=== PATIENT | female | born 1960 | race Hispanic/Latino ===

== ENCOUNTER 2017-11-08 13:03 | Emergency (ER) | payer BC ==
[~2017-11-08] VITALS: Ht 162.6 cm; Wt 83.9 kg
[~2017-11-08 13:03] MED LIST: ANTIVERT25 MG PO; BENADRYL25 MG PO; CELEBREX100 MG PO; CIPRO250 MG PO; CYCLOBENZAPRINE5 MG PO; FLECTOR1 EACH; HYDROCODON-ACE1 EA12 PO; IBUPROFEN PO; KEFLEX500 MG; LEVAQUIN500 MG PO; LISINOPRIL10 MG PO; LORTAB ELIXIR473 ML; MELATONIN PO; MELOXICAM15 MG PO; METFORMIN HCL500 MG PO; MOBIC7.5 MG PO; PENICILLIN; PRAVASTATIN SOD10 MG PO; QUALAQUIN324 MG PO; TERBINAFINE HC250 MG PO; Z.0.FLEXERIL10 MG PO; Z.0.LISINOPRIL10 MG PO; Z.0.LUNESTA3 MG PO; ZOFRAN ODT4 MG SL; ZOLPIDEM TARTRA10 MG PO
[2017-11-08] MEDS ORDERED: KETOROLAC TROMETHAMINE 30 MG/ML VIAL IV STA (13:24)
[2017-11-08] MEDS ORDERED: ONDANSETRON HCL INJ 2 MG/ML VIAL IV STA (13:24)
[2017-11-08 13:39] LABS: BILIRUBIN,URINE NEGATIVE (NEGATIVE); KETONES,URINE NEGATIVE (NEGATIVE); LEUKOCYTE ESTERASE ,URINE NEGATIVE (NEGATIVE); NITRITE,URINE NEGATIVE (NEGATIVE); PROTEIN,URINE DIPSTICK NEGATIVE (NEGATIVE); URINE UROBILINOGEN 0.2 mg/dL (0.2 - 1)
[2017-11-08 14:05] LABS: CLARITY,URINE SL CLOUDY (CLEAR); COLOR,URINE YELLOW (YELLOW)
[2017-11-08 14:06] LABS: BASOPHILS % 0.4 % (0.0-1.0); EOSINOPHILS # (AUTO) 0.1 (0.0-0.4); EOSINOPHILS % 1.1 % (0.0-6.0); HEMATOCRIT 43.7 % (34.2-44.1); HEMOGLOBIN 14.5 g/dL (12.0-16.0); LYMPHOCYTES # (AUTO) 1.9 (1.0-3.2); MEAN CORPUSCULAR HEMOGLOBIN 29.4 pg (28-32); MEAN CORPUSCULAR HGB CONC 33.2 g/dL (31-35); MEAN CORPUSCULAR VOLUME 88.6 fL (81-99); MONOCYTES # (AUTO) 0.5 (0.2-0.8); MONOCYTES % 6.4 % (4.4-11.3); NEUTROPHILS # (AUTO) 4.8 (2.1-6.9); NEUTROPHILS % 65.8 % (38.7-80.0); PLATELET COUNT 265 x10e3/uL (140-360); RED BLOOD COUNT 4.93 x10e6/uL (3.6-5.1); RED CELL DISTRIBUTION WIDTH 13.9 % (11.7-14.4)
[2017-11-08 14:15] LABS: EPITHELIAL CELLS,URINE RARE /LPF; RBC,URINE 0-5 /HPF (0-5)
[2017-11-08 14:30] LABS: ALANINE AMINOTRANSFERASE 18 IU/L (0-55); ALBUMIN/GLOBULIN RATIO 1.1 (0.8-2.0); ALKALINE PHOSPHATASE 92 IU/L (40-150); ANION GAP 12.7 mmol/L (8-16); BLOOD UREA NITROGEN 10 mg/dL (7-26); BUN/CREATININE RATIO 14 (6-25); CALCIUM 9.6 mg/dL (8.4-10.2); CARBON DIOXIDE 25 mmol/L (22-29); CHLORIDE 103 mmol/L (98-107); CREATINE KINASE 55 IU/L (29-168); CREATININE, SERUM 0.74 mg/dL (0.57-1.11); EST GLOMERULAR FILTRATION RATE > 60 ML/MIN (60-); GLUCOSE 109 mg/dL (74-118); LIPASE 50 U/L (8-78); POTASSIUM 3.7 mmol/L (3.5-5.1); SODIUM 137 mmol/L (136-145)
[2017-11-08 14:37] LABS: TROPONIN I 0.017 ng/mL (0-0.300)
--- NOTE | 2017-11-08 16:01 | Diagnostic Imaging Report ---
EXAM: CT Abdomen and Pelvis WITH contrast INDICATION: \S\ABD PAIN; with IV contrast only \[id number] \S\1520 \S\Y COMPARISON: CT dated 11/13/2015 TECHNIQUE: Abdomen and pelvis were scanned utilizing a multidetector helical scanner from the lung base to the pubic symphysis after administration of IV contrast. Coronal and sagittal reformations were obtained. Routine protocol was performed. Scan was performed when during portal venous phase. IV CONTRAST: 100 mL of Isovue-370 ORAL CONTRAST: Water COMPLICATIONS: None RADIATION DOSE: Total DLP: 703.64 mGy*cm Estimated effective dose: (DLP x 0.015 x size factor) mSv CTDIvol has been reviewed. It is below the limits set by the Radiation Protocol Committee (RPC). FINDINGS: LINES and TUBES: None. LOWER THORAX: Unremarkable HEPATOBILIARY: No focal hepatic lesions. No biliary ductal dilation. GALLBLADDER: Cholecystectomy. SPLEEN: No splenomegaly. PANCREAS: No focal masses or ductal dilatation. ADRENALS: No adrenal nodules KIDNEYS/URETERS: Kidneys enhance symmetrically. No hydronephrosis. No cystic or solid mass lesions. No stones. GI TRACT: No abnormal distention, wall thickening, or evidence of bowel obstruction. Colonic diverticulosis without evidence of diverticulitis Appendix is normal. Status post gastric band surgery with a small sliding hernia. PELVIC ORGANS/BLADDER: Hysterectomy. Bladder is unremarkable. LYMPH NODES: No lymphadenopathy. VESSELS: Unremarkable. PERITONEUM / RETROPERITONEUM: No free air or fluid. BONES: L5-S1 disc space loss.. SOFT TISSUES: Small fat-containing right inguinal hernia. IMPRESSION: No acute inflammatory process in the abdomen/pelvis. Status post gastric band surgery with a small sliding hernia. Signed by: Dr. Gabe Jerome MD on 11/08/2017 3:57 PM
[2017-11-08 17:10] VITALS: BP 141/90
[2017-11-08] MEDS ORDERED: SODIUM CHLORIDE 0.9% 50ML 50 ML ONE (23:04)
[2017-11-08] MEDS ORDERED: IOPAMIDOL 370 MG/ML 200 ML INFUS..BTL INJ ONE (23:04)
== END 2017-11-08 17:28 | disposition home or self-care (01) ==
LOC: ER 13:03
DX: R10.32 Left lower quadrant pain (principal); R10.12 Left upper quadrant pain
CPT/HCPCS: 36415; 74177; 80053; 81001; 82550; 82553; 83690; 84484; 85025; 99284; J1885; J2405; Q9967

== ENCOUNTER → 2017-12-08 | Outpatient (RCR) | payer BC | LOC: PT 11-18 08:53 | PROVIDERS: ATTEND Registered Nurse | DX: Z96.651 Presence of right artificial knee joint (principal); Z47.1 Aftercare following joint replacement surgery; M25.561 Pain in right knee; M25.661 Stiffness of right knee, not elsewhere classified; R26.2 Difficulty in walking, not elsewhere classified; M62.81 Muscle weakness (generalized) ==

== ENCOUNTER 2017-12-31 07:58 | Outpatient (RCR) | payer BC | END 2018-01-08 | LOC: PT 07:58 | PROVIDERS: ATTEND Registered Nurse | DX: Z96.651 Presence of right artificial knee joint (principal); Z47.1 Aftercare following joint replacement surgery; M25.561 Pain in right knee; M25.661 Stiffness of right knee, not elsewhere classified; M62.81 Muscle weakness (generalized); R26.2 Difficulty in walking, not elsewhere classified ==

== ENCOUNTER → 2018-02-07 | Outpatient (CLI) | payer BC | LOC: MAMMO 09:53 | PROVIDERS: ATTEND Obstetrics & Gynecology | DX: N64.59 Other signs and symptoms in breast (principal) ==

== ENCOUNTER → 2018-03-21 | Outpatient (CLI) | payer BC ==
--- NOTE | 2018-03-21 09:47 | Diagnostic Imaging Report ---
PROCEDURE:ABDOMINAL ULTRASOUND COMPARISON:[facility], CT, CT ABDOMEN/PELVIS W, 11/08/2017, 15:12. INDICATION:Lower Abdominal Pain TECHNIQUE:Alicea scale and color Doppler ultrasound FINDINGS: Imaged portions of the inferior vena cava are normal caliber. The abdominal aorta is mostly obscured; imaged portions are gross unremarkable. Normal pancreas. Pancreatic tail is obscured. Right liver span 15.7 cm. Diffusely increased parenchymal echogenicity; smooth margin. Portal vein diameter 1.2 cm; normal flow direction. Cholecystectomy. Common bile duct diameter 0.4 cm. No intrahepatic duct dilation. Right kidney scan 10.4 cm. Left kidney span 12 cm. Both kidneys are normal. Spleen length 11 cm. CONCLUSION: 1. Echogenic liver consistent with steatosis. 2. Cholecystectomy. Dictated by: Joshua Saenz M.D. on 03/21/2018 at 9:50 Electronically approved by: Joshua Saenz M.D. on 03/21/2018 at 9:51
--- NOTE | 2018-03-21 09:59 | Diagnostic Imaging Report ---
Pelvic ultrasound, 03/21/2018 Clinical history: Pelvic pain Comparison: None Technique: Transabdominal and transvaginal ultrasound. Transvaginal ultrasound necessary for evaluation of the adnexa. Findings: Hysterectomy. Unremarkable vaginal cuff. The ovaries are not conspicuous on transpelvic or transvaginal ultrasound. No free pelvic fluid. Impression: Hysterectomy. Inconspicuous ovaries. No acute abnormality. This report was generated with voice-recognition technology. Errors in financing analyst can occur. Please interpret accordingly and contact a radiologist if there are any questions regarding the report. Signed by: Dr. Joshua Saenz M.D. on 03/21/2018 9:55 AM
--- NOTE | 2018-03-21 09:59 | Diagnostic Imaging Report ---
Pelvic ultrasound, 03/21/2018 Clinical history: Pelvic pain Comparison: None Technique: Transabdominal and transvaginal ultrasound. Transvaginal ultrasound necessary for evaluation of the adnexa. Findings: Hysterectomy. Unremarkable vaginal cuff. The ovaries are not conspicuous on transpelvic or transvaginal ultrasound. No free pelvic fluid. Impression: Hysterectomy. Inconspicuous ovaries. No acute abnormality. This report was generated with voice-recognition technology. Errors in marzipan maker can occur. Please interpret accordingly and contact a radiologist if there are any questions regarding the report. Signed by: Dr. Joshua Saenz M.D. on 03/21/2018 9:55 AM
== END ==
LOC: US 08:36
PROVIDERS: ATTEND Obstetrics & Gynecology
DX: R10.31 Right lower quadrant pain (principal)
CPT/HCPCS: 76700; 76830; 76856

== ENCOUNTER → 2019-01-05 | Outpatient (CLI) | payer BC ==
[2019-01-05 07:01] LABS: ALANINE AMINOTRANSFERASE 29 IU/L (0-55); ALBUMIN 3.7 g/dL (3.5-5.0); ALBUMIN/GLOBULIN RATIO 0.9 (0.8-2.0); ALKALINE PHOSPHATASE 88 IU/L (40-150); BILIRUBIN,DIRECT 0.3 mg/dL (0.0-0.5); BLOOD UREA NITROGEN 10 mg/dL (7-26); BUN/CREATININE RATIO 13 (6-25); CALCIUM 9.4 mg/dL (8.4-10.2); CARBON DIOXIDE 26 mmol/L (22-29); CHLORIDE 104 mmol/L (98-107); CHOL/HDL RATIO 2.9 (3.0-3.6); CHOLESTEROL 174 MD/DL (0-199); EST GLOMERULAR FILTRATION RATE > 60 ML/MIN (60-); GLUCOSE 148 mg/dL (74-118); HDL CHOLESTEROL 59 MG/DL (40-60); LDL CHOLESTEROL 94 MG/DL (60-130); SODIUM 138 mmol/L (136-145); TRIGLYCERIDES 107 MG/DL (0-149)
[2019-01-05 07:20] LABS: THYROID STIMULATING HORMONE 2.351 uIU/mL (0.350-4.940)
== END ==
LOC: RAD 05:32
PROVIDERS: ATTEND Internal Medicine
DX: Z00.00 Encounter for general adult medical examination without abnormal findings (principal)
CPT/HCPCS: 36415; 80053; 80061; 80076; 83036; 84443

== ENCOUNTER 2019-09-22 16:53 | Emergency (ER) | payer BC ==
[~2019-09-22] VITALS: Ht 162.6 cm; Wt 83.9 kg
[2019-09-22] MEDS ORDERED: HYDROCODONE/APAP 5MG-325MG TAB PO ONE (17:15)
[2019-09-22 18:18] VITALS: BP 168/91
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
--- OUTSIDE RECORDS SUMMARY | 2019-09-29 11:54 | XMS REPORT | Summary of Care ---
Author Author KARLA HENNESSY N.P. 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 Role Phone CHAVO Moulton, BAN Unavailable Unavailable JANAE TORRES MD Unavailable Unavailable CHAVO PAETL, BAN Unavailable Unavailable Unavailable Unavailable Functional Status Name Dates Details Functional status health issues are not documented Status: Name Dates Details Cognitive status health issues are not documented Status: Problems Name Dates Details Aftercare following right knee joint replacement surgery (V54.81, Z47.1) Status: Active Primary localized osteoarthritis of right knee (715.16, M17.11) Status: Active Status post total knee replacement using cement, right (V43.65, Z96.651) Status: Active Pain in right knee (719.46, M25.561) Status: Active Medications Name Dates Details Lisinopril 10 MG Oral Tablet TAKE 1.5 TABLET DAILY Active 15 Tablet Bottle Ibuprofen 200 MG Oral Tablet TAKE 3 TABLET DAILY PRN * Refills: 0 Active Allergies and Adverse Reactions Name Dates Details No Known Drug Allergies (Allergy) Status: Active Past Medical History Name Dates Details History of back pain (V13.59, Z87.39) Status: Resolved History of diabetes mellitus (V12.29, Z86.39) Status: Resolved History of hypertension (V12.59, Z86.79) Status: Resolved Procedures Procedure Dates Details History of Hysterectomy Completed History of Cholecystectomy Completed History of Knee arthroscopy Completed History of Knee replacement Completed Immunization Name Dates Details Immunizations not documented Family History Name Dates Details Family history of diabetes mellitus (V18.0, Z83.3) Status: Active Social History Name Dates Details - Status: Name Dates Details Never smoker Vital Signs Date Test Result Details No Known Vitals to report Results Date Description Value Details Results not documented Plan of Care Name Dates Details Planned Observations Planned Goals not documented Instructions Name Dates Details Instructions not documented Encounters Appointment; BAN TONY M.D. Encounter Diagnosis: Problem not documented On: 09-Aug-2017 9:00 Appointment; BAN TONY M.D. Encounter Diagnosis: Problem not documented On: 07-Oct-2017 6:30 Appointment; BAN TONY M.D. Encounter Diagnosis: Problem not documented On: 20-Oct-2017 11:00 Appointment; KARLA HENNESSY NP Encounter Diagnosis: Problem not documented On: 10-Nov-2017 13:00 Appointment; BAN TONY M.D. Encounter Diagnosis: Problem not documented On: 10-Dec-2017 11:00 Appointment; BAN TONY M.D. Encounter Diagnosis: Problem not documented On: 31-Dec-2017 10:45 Appointment; BAN TONY M.D. Encounter Diagnosis: Problem not documented On: 18-Apr-2018 10:30 Appointment; BAN TONY M.D. Encounter Diagnosis: Problem not documented On: 17-Oct-2018 10:30
== END 2019-09-22 18:29 | disposition home or self-care (01) ==
LOC: ER 16:53
DX: S40.012A Contusion of left shoulder, initial encounter (principal); V43.62XA Car passenger injured in collision with other type car in traffic accident, initial encounter; Y92.488 Other paved roadways as the place of occurrence of the external cause; I10 Essential (primary) hypertension; E11.9 Type 2 diabetes mellitus without complications
CPT/HCPCS: 71045; 99283

== ENCOUNTER → 2020-04-24 | Outpatient (CLI) | payer BC | LOC: MAMMO 13:02 | PROVIDERS: ATTEND Obstetrics & Gynecology | DX: Z12.31 Encounter for screening mammogram for malignant neoplasm of breast (principal) | CPT/HCPCS: 77067 ==

== ENCOUNTER → 2020-05-01 | Outpatient (CLI) | payer BC ==
[2020-05-01 05:41] LABS: BASOPHILS # (AUTO) 0.1 (0.0-0.1); BASOPHILS % 0.8 % (0.0-1.0); EOSINOPHILS # (AUTO) 0.3 (0.0-0.4); EOSINOPHILS % 3.5 % (0.0-6.0); HEMATOCRIT 42.1 % (34.2-44.1); HEMOGLOBIN 13.6 g/dL (12.0-16.0); LYMPHOCYTES # (AUTO) 2.9 (1.0-3.2); LYMPHOCYTES % 37.6 % (18.0-39.1); MEAN CORPUSCULAR HEMOGLOBIN 28.3 pg (28-32); MEAN CORPUSCULAR HGB CONC 32.3 g/dL (31-35); MEAN CORPUSCULAR VOLUME 87.7 fL (81-99); MONOCYTES # (AUTO) 0.5 (0.2-0.8); MONOCYTES % 6.9 % (4.4-11.3); NEUTROPHILS # (AUTO) 3.9 (2.1-6.9); NEUTROPHILS % 50.7 % (38.7-80.0); PLATELET COUNT 283 x10e3/uL (140-360); RED CELL DISTRIBUTION WIDTH 13.9 % (11.7-14.4)
[2020-05-01 06:05] LABS: ALANINE AMINOTRANSFERASE 21 IU/L (0-55); ALBUMIN 3.7 g/dL (3.5-5.0); ALKALINE PHOSPHATASE 83 IU/L (40-150); ANION GAP 11.9 mmol/L (8-16); BLOOD UREA NITROGEN 13 mg/dL (7-26); BUN/CREATININE RATIO 18 (6-25); CALCIUM 9.4 mg/dL (8.4-10.2); CARBON DIOXIDE 26 mmol/L (22-29); CHLORIDE 106 mmol/L (98-107); CHOL/HDL RATIO 3.4 (3.0-3.6); CHOLESTEROL 166 MD/DL (0-199); CREATININE, SERUM 0.72 mg/dL (0.57-1.11); EST GLOMERULAR FILTRATION RATE > 60 ML/MIN (60-); GLUCOSE 124 mg/dL (74-118); HDL CHOLESTEROL 49 MG/DL (40-60); LDL CHOLESTEROL 89 MG/DL (60-130); POTASSIUM 3.9 mmol/L (3.5-5.1); SODIUM 140 mmol/L (136-145); TRIGLYCERIDES 142 MG/DL (0-149)
[2020-05-01 06:28] LABS: THYROID STIMULATING HORMONE 2.995 uIU/mL (0.350-4.940)
== END ==
LOC: LAB 05:24
PROVIDERS: ATTEND Internal Medicine Cardiovascular Disease
DX: I10 Essential (primary) hypertension (principal); R73.9 Hyperglycemia, unspecified
CPT/HCPCS: 36415; 80053; 80061; 83036; 84443; 85025

== ENCOUNTER → 2020-07-01 | Outpatient (CLI) | payer BC ==
[~2020-07-01] MED LIST changes: +SODIUM CHLORIDE 0.9% 50ML 50 ML ONE
[2020-07-01 10:29] LABS: ANION GAP 16.7 mmol/L (8-16); BLOOD UREA NITROGEN 12 mg/dL (7-26); BUN/CREATININE RATIO 16 (6-25); CARBON DIOXIDE 24 mmol/L (22-29); CHLORIDE 105 mmol/L (98-107); CREATININE, SERUM 0.75 mg/dL (0.57-1.11); EST GLOMERULAR FILTRATION RATE > 60 ML/MIN (60-); GLUCOSE 114 mg/dL (74-118); POTASSIUM 4.7 mmol/L (3.5-5.1); SODIUM 141 mmol/L (136-145)
--- NOTE | 2020-07-01 12:30 | Diagnostic Imaging Report ---
MRI of the right shoulder without contrast. History: Shoulder pain. Decreased range of motion. Impingement syndrome. Pain not responding to conservative management. Comparison: None Technique: Coronal PD FS, sagital PD FS, and axial PD and PD FS. Findings: Rotator cuff: Rotator cuff tendinosis with full-thickness tear involving the supraspinatus and anterior fibers of the infraspinatus tendons at the humeral insertion site. There is mild retraction of the torn fibers and moderate supraspinatus muscle atrophy as seen on sagittal image 22. Additionally, there is subscapularis tendinosis with partial tearing. The teres minor tendon is intact. Osseous acromion complex: Type II acromion with mild lateral downsloping. Moderate degenerative arthrosis at the acromioclavicular joint with undersurface spurring and narrowing of the supraspinatus tendon outlet. Mild subacromial/subdeltoid bursitis. Glenohumeral joint: Degeneration and fraying of the labrum. The articular cartilage surfaces are intact. The humeral head is well-seated in the glenoid fossa. Small effusion and mild synovitis in the rotator interval and subcoracoid space Biceps tendon: Intra-articular biceps tendinosis with fraying of the biceps anchor. The long head of the biceps tendon is partially subluxed into the substance of the subscapularis muscle. This is best seen on axial series 2 image 10 through 16. Other findings: Negative for muscle denervation or osseous fracture. Impression: Rotator cuff tendinosis with full-thickness tear involving the supraspinatus and anterior fibers of the infraspinatus tendons at the humeral insertion site. There is mild retraction of the torn fibers and moderate supraspinatus muscle atrophy. Additionally, there is subscapularis tendinosis with partial tearing. Moderate degenerative arthrosis at the acromioclavicular joint with undersurface spurring and narrowing of the supraspinatus tendon outlet. Mild subacromial/subdeltoid bursitis. Small effusion and mild synovitis in the rotator interval and subcoracoid space. Intra-articular biceps tendinosis with fraying of the biceps anchor. The long head of the biceps tendon is partially subluxed into the substance of the subscapularis muscle. Signed by: Dr. Jose Eduardo Fenton M.D. on 07/01/2020 12:26 PM
== END ==
LOC: OR 09:49
PROVIDERS: ATTEND Orthopaedic Surgery Orthopaedic Trauma
DX: M75.41 Impingement syndrome of right shoulder (principal); M25.511 Pain in right shoulder
CPT/HCPCS: 36415; 80048; 93005

== ENCOUNTER 2020-09-04 10:57 | Outpatient (RCR) | payer BC ==
[~2020-09-04 10:57] MED LIST changes: -SODIUM CHLORIDE 0.9% 50ML 50 ML ONE
== END 2020-09-09 ==
LOC: PT 10:57
PROVIDERS: ATTEND Orthopaedic Surgery Orthopaedic Trauma
DX: M25.511 Pain in right shoulder (principal); M25.611 Stiffness of right shoulder, not elsewhere classified; M62.81 Muscle weakness (generalized)

== ENCOUNTER 2020-10-02 08:58 | Outpatient (RCR) | payer BC, OTHER ==
[2020-10-02] MEDS ORDERED: CEFDINIR300 MG PO (18:15)
== END 2020-10-10 ==
LOC: PT 08:58
PROVIDERS: ATTEND Orthopaedic Surgery Orthopaedic Trauma
DX: M25.511 Pain in right shoulder (principal); M25.611 Stiffness of right shoulder, not elsewhere classified; M62.81 Muscle weakness (generalized)

== ENCOUNTER 2020-10-02 16:51 | Emergency (ER) | payer OTHER ==
[~2020-10-02] VITALS: Ht 162.6 cm; Wt 88.5 kg
[2020-10-02] MEDS ORDERED: CEFDINIR300 MG PO (18:15)
== END 2020-10-02 18:22 | disposition home or self-care (01) ==
LOC: FSED 17:33
DX: U07.1 COVID-19 (principal); R50.9 Fever, unspecified; N39.0 Urinary tract infection, site not specified; H92.01 Otalgia, right ear; R10.30 Lower abdominal pain, unspecified; E11.65 Type 2 diabetes mellitus with hyperglycemia; I10 Essential (primary) hypertension
CPT/HCPCS: 80053; 81003; 85025; 99283; U0002

== ENCOUNTER 2020-11-07 09:00 | Outpatient (RCR) | payer OTHER ==
[~2020-11-07 09:00] MED LIST changes: +CEFDINIR300 MG PO
== END 2020-11-10 ==
LOC: PT 09:00
PROVIDERS: ATTEND Orthopaedic Surgery Orthopaedic Trauma
DX: M75.101 Unspecified rotator cuff tear or rupture of right shoulder, not specified as traumatic (principal); M25.511 Pain in right shoulder; M25.611 Stiffness of right shoulder, not elsewhere classified; M62.81 Muscle weakness (generalized)
CPT/HCPCS: 97139

== ENCOUNTER 2020-11-14 08:54 | Outpatient (RCR) | payer OTHER | END 2020-12-08 | LOC: PT 08:54 | PROVIDERS: ATTEND Orthopaedic Surgery Orthopaedic Trauma | DX: M25.511 Pain in right shoulder (principal); M25.611 Stiffness of right shoulder, not elsewhere classified; M62.81 Muscle weakness (generalized) ==

== ENCOUNTER → 2021-03-03 | Outpatient (CLI) | payer OTHER | LOC: MRI 14:43 | PROVIDERS: ATTEND Podiatrist Foot & Ankle Surgery | DX: M79.671 Pain in right foot (principal); M25.474 Effusion, right foot ==

== ENCOUNTER → 2021-04-28 | Outpatient (CLI) | payer OTHER | LOC: MAMMO 07:49 | PROVIDERS: ATTEND Obstetrics & Gynecology | DX: Z12.31 Encounter for screening mammogram for malignant neoplasm of breast (principal) | CPT/HCPCS: 77067 ==

== ENCOUNTER → 2021-08-13 | Outpatient (CLI) | payer OTHER ==
[~2021-08-13] MED LIST changes: +COVID-19 VACC, MRNA(MODERNA)/PF 100 MCG/0.5 ML VIAL IM ONE
== END ==
LOC: VACCPMC 11:45
DX: Z23 Encounter for immunization (principal); Z20.822 Contact with and (suspected) exposure to COVID-19
CPT/HCPCS: 91301

== ENCOUNTER → 2021-12-15 | Day surgery (SDC) | payer BC, OTHER ==
[2021-12-10 12:02] LABS: ANION GAP 12.9 mmol/L (8-16); CALCIUM 9.6 mg/dL (8.4-10.2); CREATININE, SERUM 0.67 mg/dL (0.57-1.11); POTASSIUM 3.9 mmol/L (3.5-5.1)
[~2021-12-15] MED LIST changes: +ATORVASTATIN CA20 MG PO; +BYDUREON B2 MG/0.85 INJ; -COVID-19 VACC, MRNA(MODERNA)/PF 100 MCG/0.5 ML VIAL IM ONE; +FENTANYL CITRATE/PF 100MCG/2 ML INJ ONE; +HYOSCYAMINE SULFATE 0.5 MG/ML INJ ONE; +LIDOCAINE HCL 2% LOCAL INJ 5 ML SDV VIAL INJ ONE; +MIDAZOLAM HCL 2 MG/2 ML VIAL ONE; +PROPOFOL IV EMULSION 10 MG/ML 20 ML VIAL ONE; +SINGULAIR10 MG PO; +TRAZODONE HCL100 MG PO
[2021-12-15 10:23] VITALS: BP 128/74
== END | disposition home or self-care (01) ==
LOC: OR 07:34
PROVIDERS: ATTEND Internal Medicine Gastroenterology
DX: K20.90 Esophagitis, unspecified without bleeding (principal); D12.2 Benign neoplasm of ascending colon; D12.4 Benign neoplasm of descending colon; K29.50 Unspecified chronic gastritis without bleeding; K21.9 Gastro-esophageal reflux disease without esophagitis; K58.9 Irritable bowel syndrome, unspecified; B96.81 Helicobacter pylori [H. pylori] as the cause of diseases classified elsewhere; K59.00 Constipation, unspecified; K44.9 Diaphragmatic hernia without obstruction or gangrene; K57.30 Diverticulosis of large intestine without perforation or abscess without bleeding; K64.8 Other hemorrhoids; Z71.3 Dietary counseling and surveillance; Z98.84 Bariatric surgery status; E11.9 Type 2 diabetes mellitus without complications; I10 Essential (primary) hypertension; E78.5 Hyperlipidemia, unspecified; Z91.048 Other nonmedicinal substance allergy status; Z01.810 Encounter for preprocedural cardiovascular examination; Z01.812 Encounter for preprocedural laboratory examination; Z20.822 Contact with and (suspected) exposure to COVID-19; Z79.899 Other long term (current) drug therapy; Z79.84 Long term (current) use of oral hypoglycemic drugs; Z68.34 Body mass index [BMI] 34.0-34.9, adult; Z80.0 Family history of malignant neoplasm of digestive organs
CPT/HCPCS: 36415 ×2; 43239; 43450; 45380; 80048; 82948; 88305; 88312; 88342; 93005; C9113; J1980; J2001; J2250; J2704; J3010; U0002; 45378

== ENCOUNTER 2022-03-16 08:32 | Inpatient (IN) | payer BC ==
[2022-03-12 10:21] LABS: ANION GAP 16.3 mmol/L (8-16); CREATININE, SERUM 0.79 mg/dL (0.57-1.11); POTASSIUM 4.3 mmol/L (3.5-5.1)
[~2022-03-16] VITALS: Ht 162.6 cm; Wt 88.5 kg
[~2022-03-16 08:32] MED LIST changes: -FENTANYL CITRATE/PF 100MCG/2 ML INJ ONE; -HYOSCYAMINE SULFATE 0.5 MG/ML INJ ONE; -LIDOCAINE HCL 2% LOCAL INJ 5 ML SDV VIAL INJ ONE; -MIDAZOLAM HCL 2 MG/2 ML VIAL ONE; -PROPOFOL IV EMULSION 10 MG/ML 20 ML VIAL ONE
[2022-03-16] MEDS ORDERED: PANTOPRAZOLE SO40 MG PO (08:49)
[2022-03-16] MEDS ORDERED: METFORMIN HCL500 MG PO (10:20)
[2022-03-16] MEDS ORDERED: SCOPOLAMINE 1 MG PATCH ONE (10:48)
[2022-03-16] MEDS ORDERED: KETAMINE HCL INJ 50 MG/ML 10 ML VIAL ONE (13:00)
[2022-03-16] MEDS ORDERED: MIDAZOLAM HCL 2 MG/2 ML VIAL ONE (13:00)
[2022-03-16] MEDS ORDERED: SUGAMMADEX SODIUM 200 MG/2 ML VIAL IV ONE (13:26)
[2022-03-16] MEDS ORDERED: POVIDONE IODINE 0.05% 0.05 % ML PO ONE (13:26)
[2022-03-16] MEDS ORDERED: ONDANSETRON HCL INJ 2MG/ML 2ML 2 MG/ML VIAL ONE ×2 (13:26→14:18)
[2022-03-16] MEDS ORDERED: SEVOFLURANE INHAL SOLN 250 ML PEN BTL ONE (13:26)
[2022-03-16] MEDS ORDERED: LIDOCAINE HCL 2% LOCAL INJ 5 ML SDV VIAL INJ ONE (13:26)
[2022-03-16] MEDS ORDERED: PROPOFOL IV EMULSION 10 MG/ML 20 ML VIAL ONE (13:26)
[2022-03-16] MEDS ORDERED: ACETAMINOPHEN 1000 MG/100 ML IV ONE (13:26)
[2022-03-16] MEDS ORDERED: DEXAMETHASONE SOD PHOS INJ 4 MG/ML SDV ONE (13:26)
[2022-03-16] MEDS ORDERED: Morphine 2mg Syringe 2 MG/ML SYR IV PRN (14:15)
[2022-03-16] MEDS ORDERED: FENTANYL CITRATE/PF 100MCG/2 ML INJ ONE (14:15)
[2022-03-16] MEDS ORDERED: HYDROCODONE/APAP 7.5MG-325MG 1 EA TAB PO PRN (14:15)
[2022-03-16] MEDS ORDERED: ONDANSETRON HCL INJ 2MG/ML 2ML 2 MG/ML VIAL IV PRN (14:15)
[2022-03-16] MEDS ORDERED: METOCLOPRAMIDE HCL 10 MG/2ML VIAL ONE (14:25)
[2022-03-16] MEDS ORDERED: PROMETHAZINE HCL (IM) 25 MG/ML VIAL IM ONE (14:53)
[2022-03-16] MEDS ORDERED: BUPIVACAINE HC 0.75% PF 10ML VIAL INJ ONE (15:26)
[2022-03-16] MEDS ORDERED: HYDROMORPHONE 1MG/1ML INJ ONE (15:48)
[2022-03-16 16:20] VITALS: BP 120/80
[2022-03-16] MEDS: SODIUM CHLORIDE 0.9% 1000ML 1,000 ML IV SCH ×2 (17:00→23:10)
[2022-03-16 17:15] VITALS: BP 120/80
[2022-03-16] MEDS ORDERED: MECLIZINE HCL 12.5 MG TAB PO PRN (17:30)
[2022-03-16] MEDS ORDERED: MONTELUKAST SODIUM 10 MG TAB PO PRN (17:30)
[2022-03-16] MEDS ORDERED: TRAZODONE HCL 50 MG TAB PO PRN (17:30)
[2022-03-16 17:42] VITALS: BP 120/80
[2022-03-16 20:00] VITALS: BP 146/74
[2022-03-16] MEDS ORDERED: LISINOPRIL 10 MG TAB PO SCH (21:00)
[2022-03-16] MEDS ORDERED: ATORVASTATIN 20 MG TAB PO SCH (21:00)
[2022-03-16] MEDS: ENOXAPARIN SOD INJ 40 MG/0.4 ML SYR SC SCH (21:04)
[2022-03-16 23:53] VITALS: BP 155/72
[2022-03-17 04:00] VITALS: BP_SYST 0
[2022-03-17 04:56] LABS: BASOPHILS # (AUTO) 0.1 (0.0-0.1); BASOPHILS % 0.5 % (0.0-1.0); HEMATOCRIT 46.9 % (34.2-44.1); HEMOGLOBIN 13.7 g/dL (12.0-16.0); LYMPHOCYTES # (AUTO) 1.2 (1.0-3.2); LYMPHOCYTES % 7.6 % (18.0-39.1); MEAN CORPUSCULAR HEMOGLOBIN 28.5 pg (28-32); MEAN CORPUSCULAR HGB CONC 29.2 g/dL (31-35); MEAN CORPUSCULAR VOLUME 97.5 fL (81-99); MONOCYTES % 6.7 % (4.4-11.3); NEUTROPHILS # (AUTO) 12.9 (2.1-6.9); NEUTROPHILS % 84.7 % (38.7-80.0); PLATELET COUNT 225 x10e3/uL (140-360); RED BLOOD COUNT 4.81 x10e6/uL (3.6-5.1); RED CELL DISTRIBUTION WIDTH 14.4 % (11.7-14.4)
[2022-03-17 05:23] LABS: ALBUMIN 3.2 g/dL (3.5-5.0); ALBUMIN/GLOBULIN RATIO 0.8 (0.8-2.0); ANION GAP 17.8 mmol/L (8-16); CALCIUM 8.1 mg/dL (8.4-10.2); CREATININE, SERUM 0.78 mg/dL (0.57-1.11); MAGNESIUM 1.7 MG/DL (1.3-2.1); PHOSPHORUS 2.3 MG/DL (2.3-4.7); POTASSIUM 4.8 mmol/L (3.5-5.1)
[2022-03-17 08:08] VITALS: BP 108/81
[2022-03-17] MEDS ORDERED: PANTOPRAZOLE SOD 40 MG TABEC PO SCH (09:00)
[2022-03-17] MEDS: ENOXAPARIN SOD INJ 40 MG/0.4 ML SYR SC SCH (09:04)
[2022-03-17] MEDS: SODIUM CHLORIDE 0.9% 1000ML 1,000 ML IV SCH (09:04)
[2022-03-17 09:08] VITALS: BP 108/81
[2022-03-17] MEDS ORDERED: FAMOTIDINE 20 MG/2 ML VIAL IV ONE (10:00)
== END 2022-03-17 10:57 | disposition home or self-care (01) | DRG 621 ==
LOC: OR 08:32 → PACU V 14:01 → MED/SURG2 16:36
PROVIDERS: ADMIT Internal Medicine; ATTEND Internal Medicine
PROC: 0BQT4ZZ Repair Diaphragm, Percutaneous Endoscopic Approach (ICD-10-PCS; 2022-03-16)
PROC: 0DB64Z3 Excision of Stomach, Percutaneous Endoscopic Approach, Vertical (ICD-10-PCS; principal; 2022-03-16 11:19)
PROC: 0DP64CZ Removal of Extraluminal Device from Stomach, Percutaneous Endoscopic Approach (ICD-10-PCS; 2022-03-16 11:19)
DX: E66.01 Morbid (severe) obesity due to excess calories (principal); R10.13 Epigastric pain; K44.9 Diaphragmatic hernia without obstruction or gangrene; E11.9 Type 2 diabetes mellitus without complications; I11.9 Hypertensive heart disease without heart failure; Z68.35 Body mass index [BMI] 35.0-35.9, adult; K21.9 Gastro-esophageal reflux disease without esophagitis; K66.0 Peritoneal adhesions (postprocedural) (postinfection); Z20.822 Contact with and (suspected) exposure to COVID-19; Z79.84 Long term (current) use of oral hypoglycemic drugs
CPT/HCPCS: 36415; 80048; 80053; 82948; 83735; 84100; 85025; 94799; C1713; J0690; J1100; J1170; J1650; J2001; J2250; J2270; J2405; J2550; J2765; J3010; J7030

== ENCOUNTER → 2022-04-21 | Outpatient (CLI) | payer BC ==
[~2022-04-21] MED LIST changes: +PANTOPRAZOLE SO40 MG PO
== END ==
LOC: MAMMO 13:05
PROVIDERS: ATTEND Obstetrics & Gynecology
DX: Z12.31 Encounter for screening mammogram for malignant neoplasm of breast (principal)
CPT/HCPCS: 77067

== ENCOUNTER 2023-01-06 06:01 | Observation (INO) | payer BC ==
[~2023-01-06] VITALS: Ht 162.6 cm; Wt 81.6 kg
[2023-01-06] VITALS (8 sets, daily range): BP systolic 122–144; BP diastolic 63–73
[2023-01-06] MEDS ORDERED: SODIUM CHLORIDE 0.9% 1000ML 1,000 ML IV STA (06:07)
[2023-01-06] MEDS ORDERED: ONDANSETRON HCL INJ 2MG/ML 2ML 2 MG/ML VIAL IV STA (06:07)
[2023-01-06] MEDS ORDERED: ONDANSETRON HCL INJ 2MG/ML 2ML 2 MG/ML VIAL ONE (06:10)
[2023-01-06] MEDS ORDERED: SODIUM CHLORIDE 0.9% 1000ML 2,000 ML ONE (06:10)
[2023-01-06 06:23] LABS: BASOPHILS % 0.5 % (0.0-1.0); EOSINOPHILS % 0.1 % (0.0-6.0); HEMOGLOBIN 13.2 g/dL (12.0-16.0); LYMPHOCYTES # (AUTO) 2.4 (1.0-3.2); LYMPHOCYTES % 29.2 % (18.0-39.1); MEAN CORPUSCULAR HEMOGLOBIN 29.7 pg (28-32); MEAN CORPUSCULAR VOLUME 90.1 fL (81-99); MONOCYTES # (AUTO) 0.7 (0.2-0.8); MONOCYTES % 8.7 % (4.4-11.3); NEUTROPHILS % 61.1 % (38.7-80.0); PLATELET COUNT 233 x10e3/uL (140-360); RED BLOOD COUNT 4.44 x10e6/uL (3.6-5.1); RED CELL DISTRIBUTION WIDTH 13.5 % (11.7-14.4)
[2023-01-06 06:31] LABS: INR 1.02; PROTHROMBIN TIME 13.9 seconds (11.9-14.5)
[2023-01-06 06:32] LABS: PARTIAL THROMBOPLASTIN TIME 27.4 seconds (23.8-35.5)
[2023-01-06 06:40] LABS: ALANINE AMINOTRANSFERASE 13 IU/L (0-55); ALBUMIN 3.7 g/dL (3.5-5.0); ALBUMIN/GLOBULIN RATIO 1.2 (0.8-2.0); ALKALINE PHOSPHATASE 64 IU/L (40-150); ANION GAP 15.5 mmol/L (8-16); BLOOD UREA NITROGEN 19 mg/dL (7-26); BUN/CREATININE RATIO 21 (6-25); CALCIUM 8.9 mg/dL (8.4-10.2); CARBON DIOXIDE 20 mmol/L (22-29); CHLORIDE 105 mmol/L (98-107); CREATINE KINASE 74 IU/L (29-168); CREATININE, SERUM 0.89 mg/dL (0.57-1.11); GLUCOSE 124 mg/dL (74-118); MAGNESIUM 1.5 MG/DL (1.3-2.1); POTASSIUM 3.5 mmol/L (3.5-5.1); SODIUM 137 mmol/L (136-145)
[2023-01-06] MEDS ORDERED: SODIUM CHLORIDE 0.9% 1000ML 1,000 ML IV ONE (07:00)
[2023-01-06 07:02] LABS: CLARITY,URINE CLEAR (CLEAR); COLOR,URINE YELLOW (YELLOW); KETONES,URINE NEGATIVE (NEGATIVE); LEUKOCYTE ESTERASE ,URINE NEGATIVE (NEGATIVE); NITRITE,URINE NEGATIVE (NEGATIVE); PROTEIN,URINE DIPSTICK 1+ (NEGATIVE); URINE UROBILINOGEN 0.2 mg/dL (0.2 - 1)
[2023-01-06 07:06] LABS: BACTERIA,URINE FEW /HPF; EPITHELIAL CELLS,URINE FEW /LPF; RBC,URINE 0-5 /HPF (0-5); WBC,URINE (MAN) 0-5 /HPF (0-5)
[2023-01-06] MEDS ORDERED: ONDANSETRON HCL INJ 2MG/ML 2ML 2 MG/ML VIAL IV PRN (07:45)
[2023-01-06] MEDS: FAMOTIDINE 20 MG/2 ML VIAL IV SCH ×2 (08:05→21:30)
[2023-01-06] MEDS ORDERED: ASPIRIN81 MG PO (11:03)
[2023-01-06] MEDS ORDERED: METOPROLOL SUCC25 MG PO (11:03)
[2023-01-06] MEDS: SODIUM CHLORIDE 0.9% 1000ML 1,000 ML IV SCH ×2 (11:30→21:30)
[2023-01-06] MEDS ORDERED: HEPARIN SOD/SOD CHLORIDE 2,000 ML ONE (14:00)
[2023-01-06] MEDS ORDERED: LIDOCAINE HCL 2% LOCAL 20 ML VIAL ONE (14:01)
[2023-01-06] MEDS ORDERED: IOPAMIDOL 370 MG/ML 100 ML INFUS..BTL INJ ONE (14:14)
[2023-01-06] MEDS ORDERED: MIDAZOLAM HCL 2 MG/2 ML VIAL ONE (14:15)
[2023-01-06] MEDS ORDERED: HEPARIN SOD/SOD CHLORIDE 1,000 ML ONE (14:16)
[2023-01-06] MEDS ORDERED: FENTANYL CITRATE/PF 100MCG/2 ML INJ ONE (14:16)
[2023-01-06] MEDS ORDERED: VERAPAMIL HCL 2.5 MG/ML 2 ML VIAL ONE (14:24)
[2023-01-06] MEDS ORDERED: BIVALRIUDIN 250 MG/VIAL VIAL IV ONE (14:34)
[2023-01-06] MEDS ORDERED: PRASUGREL 10 MG TAB ONE (14:34)
[2023-01-06] MEDS ORDERED: ASPIRIN 325 MG TAB ONE (14:35)
[2023-01-06] MEDS ORDERED: SODIUM CHLORIDE 0.9% 1000ML 1,000 ML IV SCH (15:45)
[2023-01-06] MEDS ORDERED: ATORVASTATIN 20 MG TAB PO SCH (21:00)
[2023-01-06] MEDS ORDERED: LISINOPRIL 2.5 MG TAB PO SCH (21:00)
[2023-01-06] MEDS: ACETAMINOPHEN 325 MG TAB PO PRN (21:31)
[2023-01-07 01:15] VITALS: BP 123/61
[2023-01-07] MEDS: ACETAMINOPHEN 325 MG TAB PO PRN (03:15)
[2023-01-07 05:50] VITALS: BP 127/56
[2023-01-07 05:52] LABS: BASOPHILS % 0.3 % (0.0-1.0); EOSINOPHILS % 0.2 % (0.0-6.0); HEMATOCRIT 35.6 % (34.2-44.1); HEMOGLOBIN 11.9 g/dL (12.0-16.0); LYMPHOCYTES # (AUTO) 1.1 (1.0-3.2); LYMPHOCYTES % 16.6 % (18.0-39.1); MEAN CORPUSCULAR HEMOGLOBIN 30.3 pg (28-32); MEAN CORPUSCULAR HGB CONC 33.4 g/dL (31-35); MEAN CORPUSCULAR VOLUME 90.6 fL (81-99); MONOCYTES # (AUTO) 0.7 (0.2-0.8); MONOCYTES % 11.4 % (4.4-11.3); NEUTROPHILS # (AUTO) 4.5 (2.1-6.9); NEUTROPHILS % 71.2 % (38.7-80.0); PLATELET COUNT 171 x10e3/uL (140-360); RED BLOOD COUNT 3.93 x10e6/uL (3.6-5.1); RED CELL DISTRIBUTION WIDTH 13.8 % (11.7-14.4)
[2023-01-07 06:20] LABS: ALBUMIN 3.2 g/dL (3.5-5.0); ALBUMIN/GLOBULIN RATIO 1.1 (0.8-2.0); ANION GAP 15.6 mmol/L (8-16); CALCIUM 8.4 mg/dL (8.4-10.2); CHOL/HDL RATIO 2.7 (3.0-3.6); CREATININE, SERUM 0.64 mg/dL (0.57-1.11); POTASSIUM 3.6 mmol/L (3.5-5.1)
[2023-01-07 06:59] LABS: CREATINE KINASE MB 0.8 ng/mL (0-5.0)
[2023-01-07] MEDS: SODIUM CHLORIDE 0.9% 1000ML 1,000 ML IV SCH (07:30)
[2023-01-07] MEDS ORDERED: LISINOPRIL2.5 MG PO (08:14)
[2023-01-07] MEDS ORDERED: LIPITOR20 MG PO (08:14)
[2023-01-07] MEDS ORDERED: EFFIENT10 MG PO (08:14)
[2023-01-07] MEDS ORDERED: ONDANSETRON HCL 4 MG ORAL DISINTEGRATING TAB PO PRN (08:30)
[2023-01-07] MEDS ORDERED: PANTOPRAZOLE SOD 40 MG TABEC PO SCH (09:00)
[2023-01-07] MEDS ORDERED: PRASUGREL 10 MG TAB PO SCH (09:00)
[2023-01-07] MEDS ORDERED: ASPIRIN 325 MG TAB PO SCH (09:00)
[2023-01-07] MEDS ORDERED: ASPIRIN 81 MG ENTERIC COATED PO SCH (09:00)
[2023-01-07 09:18] VITALS: BP 102/59
[2023-01-07] MEDS: FAMOTIDINE 20 MG/2 ML VIAL IV SCH (09:31)
[2023-01-07] MEDS ORDERED: METOPROLOL SUCCINATE 25 MG TAB XL PO SCH (21:00)
== END 2023-01-07 11:35 | disposition home or self-care (01) ==
LOC: ER 06:16 → INTOOBSV 07:46 → ERHOLD 07:46 → MED/SURG2 08:56
PROVIDERS: ADMIT Internal Medicine; ATTEND Internal Medicine
DX: I25.119 Atherosclerotic heart disease of native coronary artery with unspecified angina pectoris (principal); U07.1 COVID-19; E11.9 Type 2 diabetes mellitus without complications; I10 Essential (primary) hypertension; K21.9 Gastro-esophageal reflux disease without esophagitis; M19.90 Unspecified osteoarthritis, unspecified site; Z86.16 Personal history of COVID-19; R94.39 Abnormal result of other cardiovascular function study; M17.11 Unilateral primary osteoarthritis, right knee; Z96.651 Presence of right artificial knee joint
CPT/HCPCS: 36415 ×2; 70450; 71045; 80053 ×2; 80061; 81001; 82550 ×2; 82553 ×2; 82948 ×2; 83735; 83880; 84443; 84484 ×2; 85025 ×2; 85610; 85730; 87086; 92928; 93005; 93454; 93880; 99284; C1725; C1876; C1887 ×2; G0378 ×2; J0583; J2001; J2250; J2405; J3010; J7030; Q9967; S0164; U0002; 99152; 99153

== ENCOUNTER → 2023-04-19 | Outpatient (CLI) | payer BC ==
[~2023-04-19] MED LIST changes: +ASPIRIN81 MG PO; +EFFIENT10 MG PO; +LIPITOR20 MG PO; +LISINOPRIL2.5 MG PO; +METOPROLOL SUCC25 MG PO
== END ==
LOC: MAMMO 10:45
PROVIDERS: ATTEND Obstetrics & Gynecology
DX: Z12.31 Encounter for screening mammogram for malignant neoplasm of breast (principal)
CPT/HCPCS: 77067

== ENCOUNTER → 2023-07-27 | Outpatient (REF) | payer BC | LOC: RAD 15:17 | PROVIDERS: ATTEND Internal Medicine | DX: R10.2 Pelvic and perineal pain (principal) | CPT/HCPCS: 72170 ==

== ENCOUNTER → 2024-04-24 | Outpatient (REF) | payer BC ==
[~2024-04-24] MED LIST changes: +LEVOCETIRIZINE D5 MG; +OZEMPIC1 MG/0.71
== END ==
LOC: MAMMO 09:34
PROVIDERS: ATTEND Obstetrics & Gynecology
DX: Z12.31 Encounter for screening mammogram for malignant neoplasm of breast (principal)
CPT/HCPCS: 77067

== ENCOUNTER 2025-03-21 21:03 | Emergency (ER) | payer BC ==
[~2025-03-21] VITALS: Ht 162.6 cm; Wt 73.0 kg
[2025-03-21 21:19] VITALS: PULSE 78; RESP 18; TEMP 97
[2025-03-21] MEDS ORDERED: IBUPROFEN600 MG PO (21:43)
[2025-03-21] MEDS: KETOROLAC TROMETHAMINE 60 MG/2 ML VIAL IM ONE (21:59)
[2025-03-21 22:14] VITALS: BP 135/77; O2SAT 99
== END 2025-03-21 22:06 | disposition home or self-care (01) ==
LOC: FSED 21:40
DX: K08.89 Other specified disorders of teeth and supporting structures (principal); R68.84 Jaw pain; I10 Essential (primary) hypertension; E11.9 Type 2 diabetes mellitus without complications
CPT/HCPCS: 99283; J1885

== ENCOUNTER → 2025-05-28 | Outpatient (REF) | payer BC ==
[~2025-05-28] MED LIST changes: +IBUPROFEN600 MG PO
== END ==
LOC: MAMMO 11:03
PROVIDERS: ATTEND Obstetrics & Gynecology
DX: Z12.31 Encounter for screening mammogram for malignant neoplasm of breast (principal)
CPT/HCPCS: 77067